=== PATIENT | male | born 1940 | race Caucasian/White ===

== ENCOUNTER 2023-12-28 10:08 | Day surgery (SDC) | payer OTHER ==
[2023-12-28] VITALS (20 sets, daily range): BP systolic 96–150; BP diastolic 40–120
[~2023-12-28] VITALS: Ht 175.3 cm; Wt 68.9 kg
[~2023-12-28 10:08] MED LIST: Lactated Ringer's 1,000 ML IV SCH
[2023-12-28] MEDS ORDERED: Benzocaine Oral Spray 0.5ML UD ONE (11:08)
[2023-12-28] MEDS ORDERED: propofoL 0 ML IV ONE (11:08)
--- NOTE | 2023-12-28 11:51 | NUR ---
PT TO DAY SURGERY STEP DOWN FROM EGD; BEDSIDE REPORT RECEIVED. PT IS AWAKE, ALERT AND ORIENTED; ABLE TO MOVE SELF IN BED. VSS. PT DENIES PAIN AT THIS TIME.
--- NOTE | 2023-12-28 12:04 | NUR ---
Discharge instructions reviewed with patient. Patient verbalizes understanding. Copy given to patient to take home. Patient States Post-Procedure ride home has been arranged.
--- NOTE | 2023-12-28 12:08 | NUR ---
TOLERATING PO FLUIDS
--- NOTE | 2023-12-28 12:18 | NUR ---
Patient up to Ambulate independently. Gait steady. Discharged via wheelchair to private car for ride home.
--- NOTE | 2024-01-04 13:40 | NUR ---
01/04/24 1340 [place] [place]ette HISTORY, CHART, MEDICATIONS AND ALLERGIES REVIEWED BEFORE START OF PROCEDURE. PATIENT CONFIRMS NPO STATUS AND AGREES WITH SCHEDULED PROCEDURE. 3-LEAD EKG REVIEWED WITH PHYSICIAN PRIOR TO START OF PROCEDURE. MONITOR INTACT WITH CONTINUOUS PULSE OXIMETRY,CAPNOGRAPHY, 3-LEAD EKG, INTERMITTENT BP. SUPPLEMENTAL O2 TO BE TITRATED THROUGHOUT PROCEDURE TO MAINTAIN O2 SATURATION ABOVE 90%. PATIENT DETERMINED TO BE ASA APPROPRIATE FOR PROPOFOL SEDATION PRIOR TO START OF PROCEDURE BY
== END 2023-12-28 12:18 | disposition home or self-care (01) ==
LOC: ORSCMMR 10:08 → ORD 11:00 → ORSCMMR 11:00
DX: R93.5 Abnormal findings on diagnostic imaging of other abdominal regions, including retroperitoneum (principal); K21.9 Gastro-esophageal reflux disease without esophagitis; K22.2 Esophageal obstruction; I10 Essential (primary) hypertension; N40.0 Benign prostatic hyperplasia without lower urinary tract symptoms; Z79.899 Other long term (current) drug therapy
CPT/HCPCS: 88305; A9270; C1726; J2704; J7120

== ENCOUNTER 2024-09-16 19:20 | Emergency (ER) | payer OTHER ==
[~2024-09-16] VITALS: Ht 177.8 cm; Wt 69.0 kg
== END 2024-09-16 22:17 | disposition home or self-care (01) ==
LOC: ER 19:20
DX: S01.81XA Laceration without foreign body of other part of head, initial encounter (principal); W01.0XXA Fall on same level from slipping, tripping and stumbling without subsequent striking against object, initial encounter
CPT/HCPCS: 12011; 70450; 99283-25